=== PATIENT | male | born 1985 | race Caucasian/White ===

== ENCOUNTER 2019-10-31 18:10 | Emergency (ER) | payer OTHER ==
[~2019-10-31] VITALS: Ht 177.8 cm; Wt 90.7 kg
[~2019-10-31 18:10] MED LIST: ATIVAN0.5 MG PO; NORCO 325 MG-51 TAB PO; PROZAC40 MG PO; ULTRAM50 MG PO
== END 2019-10-31 20:17 | disposition home or self-care (01) ==
LOC: ED 18:10
DX: S93.602A Unspecified sprain of left foot, initial encounter (principal); Z79.899 Other long term (current) drug therapy; X58.XXXA Exposure to other specified factors, initial encounter; Y93.01 Activity, walking, marching and hiking; Y92.89 Other specified places as the place of occurrence of the external cause; Y99.8 Other external cause status

== ENCOUNTER 2020-05-25 03:03 | Emergency (ER) | payer OTHER ==
[~2020-05-25] VITALS: Ht 177.8 cm; Wt 93.0 kg
[2020-05-25] MEDS ORDERED: KLONOPIN2 M1 PO (03:21)
[2020-05-25] MEDS ORDERED: AUGMENTIN 875875 MG PO (06:45)
== END 2020-05-25 06:55 | disposition home or self-care (01) ==
LOC: ED 03:03
DX: S02.40FA Zygomatic fracture, left side, initial encounter for closed fracture (principal); S01.01XA Laceration without foreign body of scalp, initial encounter; F17.200 Nicotine dependence, unspecified, uncomplicated; Z79.899 Other long term (current) drug therapy; Y04.0XXA Assault by unarmed brawl or fight, initial encounter; Y93.89 Activity, other specified; Y92.89 Other specified places as the place of occurrence of the external cause; Y99.9 Unspecified external cause status

== ENCOUNTER 2023-07-03 14:33 | Emergency (ER) | payer SELFPAY ==
[~2023-07-03] VITALS: Ht 177.8 cm; Wt 90.7 kg
[~2023-07-03 14:33] MED LIST changes: +AUGMENTIN 875875 MG PO; +KLONOPIN2 M1 PO
== END 2023-07-03 15:57 | disposition home or self-care (01) ==
LOC: ED 14:33
DX: T14.8XXD Other injury of unspecified body region, subsequent encounter (principal); Z98.890 Other specified postprocedural states; X58.XXXD Exposure to other specified factors, subsequent encounter

== ENCOUNTER 2023-11-09 12:52 | Emergency (ER) | payer SELFPAY | END 2023-11-09 14:15 | disposition home or self-care (01) | LOC: ED 12:52 | DX: R45.1 Restlessness and agitation (principal); F41.9 Anxiety disorder, unspecified; F32.A Depression, unspecified; Z98.890 Other specified postprocedural states ==